=== PATIENT | female | born 1985 | race African-American/Black ===

== ENCOUNTER → 2017-11-24 | Outpatient (CLI) | payer BC ==
[2017-11-24 15:12] VITALS: BP 92/79; PULSE 95; RESP 16; TEMP 97.8
[2017-11-24 15:55] VITALS: BMI 35.1
--- NOTE | 2017-11-24 17:16 | P.HPBAR ---
Bariatric H&P - History & Physicial H&P Date: 11/24/17 History & Physicial: Visit/CC: Initial Visit Patient initial contact: Initial weight: 92.136 kg Initial weight in pounds: 203.00 Height: 5 ft 3.75 in Initial BMI: 35.1 Last weight: Current weight: 92.136 kg Current weight in pounds: 203.00 Current BMI: 35.1 [place] body weight (based on NIH guidelines): 53.864 kg Excess body weight loss: 0.0% The patient is a 32 year-old F who presents for Bariatric Assessment. Patient here today for bariatric evaluation. She has been struggling with her weight for many years. Patient suffers from bilateral knee pain, back pain, and heartburn. Her heaviest weight was probably around 210 she believes. Denies dysphagia. No history of DVT. She has tried a variety of weight loss methods without sustained success. She did have a nutritional weight loss program that she states resulted in increased weight gain. Only significant surgical procedure was a abdominoplasty in the past. Review of Systems The patient denies any acute changes in vision or hearing, no dysphagia or odynophagia, no chest pain or shortness of breath, no dysuria or hematuria, no headache, no runny nose, no rectal bleeding or melena, no unexplained weight loss Past Medical History History of Any Multi-Drug Resistant Organisms: None Reported Additional Past Surgical History / Comment(s): pannilectomy Past Anesthesia/Blood Transfusion Reactions: No Reported Reaction Past Psychological History: No Psychological Hx Reported Smoking Status: Never smoker Past Alcohol Use History: None Reported Past Drug Use History: None Reported Surgical - Exam Vital Signs Temp Pulse Resp BP 97.8 F 95 16 92/79 11/24/17 15:07 11/24/17 15:07 11/24/17 15:07 11/24/17 15:07 Physical exam: General: Well-developed, well-nourished HEENT: Normocephalic, sclerae nonicteric Abdomen: Nontender, nondistended Extremities: No edema Neuro: Alert and oriented Bariatric Assessment & Plan (1) Obesity (BMI 30-39.9) Narrative/Plan: Surgical weight loss was discussed in detail with the patient. She did attend a seminar that I performed in September. She is interested in sleeve gastrectomy. She does require a 6 month supervised weight loss over a period she is 2 months into that program thus far. Alternatively plan upper endoscopy in March. Hopefully we'll be able to schedule sleeve gastrectomy shortly following that. Status: Acute Bariatric Checklist Checklist: Plan: Checklist: EGD: 1. Hiatal hernia: 2. H. Pylori: HgbA1c: Vitamin D: Smoking: Never smoker Primary care physician referral: Psychiatry clearance: Cardiology clearance: Sleep study: Diet journal: VTE risk score: VTE risk level: Rehab needs at discharge:
== END | disposition home or self-care (01) ==
LOC: BARWHC3 14:57 → EDBD 15:00
PROVIDERS: ATTEND Surgery
DX: E66.9 Obesity, unspecified (principal); Z68.30 Body mass index [BMI] 30.0-30.9, adult
CPT/HCPCS: 99201

== ENCOUNTER → 2018-04-06 | Outpatient (CLI) | payer BC ==
[2018-04-06 15:39] VITALS: BP 98/62; PULSE 86; TEMP 99.9; BMI 37.2
--- NOTE | 2018-04-06 16:21 | P.BASOAP ---
Subjective Progress Note Date: 04/06/18 Principal diagnosis: Morbid obesity Patient returns after completing 6 month supervised weight loss. Patient has gained approximately 7 pounds. No other changes to her history and physical. Objective - Vital Signs Vital signs: Vital Signs Temp 99.9 F H 04/06/18 15:36 Pulse 86 04/06/18 15:36 Resp BP 98/62 04/06/18 15:36 Pulse Ox Intake & Output 04/05/18 04/06/18 04/06/18 18:59 06:59 18:59 Weight 95.39 kg - Exam Abdomen: Soft, nontender, nondistended Assessment/Plan (1) Obesity (BMI 30-39.9) Narrative/Plan: Will proceed with upper endoscopy on 04/21. The surgical risks related to sleep gastrectomy were described in detail. The risks of bleeding, infection, stenosis, stricture, leak, abscess, fistula formation, peritonitis, poor weight loss, reflux, vomiting, conversion to an open procedure, aborting sleeve gastrectomy, MO, PE, DVT, and were discussed. The patient understands and wishes to proceed. Plan: Date: 04/06/18 Initial Weight: 92.136 kg Initial BMI: 35.9 Current Weight: 95.39 kg Current BMI: 37.2 Type of Surgery: Total Volume in Band: Previous Volume: Volume Removed: Volume Added: Band Size:
== END | disposition home or self-care (01) ==
LOC: BARWHC3 14:46
PROVIDERS: ATTEND Surgery
DX: E66.01 Morbid (severe) obesity due to excess calories (principal); Z68.37 Body mass index [BMI] 37.0-37.9, adult
CPT/HCPCS: 99211

== ENCOUNTER → 2018-07-13 | Outpatient (CLI) | payer BC ==
--- NOTE | 2018-07-13 20:53 | CONS ---
CONSULTATION Consultation for sleep apnea. 33-year-old female patient coming in for sleep apnea evaluation. She is excessively fatigued and fatigued and sleepy during the day. She works as a customs officer. She sleeps between 11:00 p.m. and 4:30 am in the morning. She wakes up tired and sleepy during the day. On weekends she sleeps between midnight and 7:00 am. She snores and unsure if she quits breathing. Upon arousal she is quite somnolent and sleepy. Marion score is currently at 15. She has gained around 40 pounds over the past 5 years. No family history of obstructive sleep apnea. No grinding of the teeth. No restlessness in lower extremities. No nocturnal heartburn. She is considering bariatric surgery and for that reason, she has seen Dr. Wei Willett. PAST MEDICAL HISTORY: Obesity otherwise negative. SURGICAL HISTORY: Negative other than dental procedure of extraction of wisdom tooth. ALLERGIES: Not known. MEDICATIONS: None. SOCIAL HISTORY: Nonsmoker. No history of alcohol. No history of IV drugs. FAMILY HISTORY: Negative for sleep apnea. REVIEW OF SYSTEMS: 12-point review of system was done. Positive for snoring. Negative for any witnessed apneas. No nocturia, no grinding of the teeth. No sleepwalking or sleep talking. No anxiety or panic attacks. No palpitation, no heartburn, no sweating, no claustrophobia, no depression. PHYSICAL EXAMINATION: BP is 101/83, pulse 88, respirations 18, temperature 98.2, saturation 96% on room air. Marion score of 15. BMI 34.6, neck size 13-1/2 and weight is 199, height is 5 feet 3 inches. GENERAL APPEARANCE: Calm, comfortable. Head is atraumatic, normocephalic. NECK: Supple, short, crowding of posterior pharynx. No goiter or neck masses. LUNGS: Clear to auscultation. HEART: Sounds regular rhythm. Normal S1, S2. No S3, S4. No murmurs. ABDOMEN: Soft, nontender. No organomegaly. EXTREMITIES: No edema. No cyanosis or clubbing. SKIN: Negative for any wounds or ulceration. NEUROLOGIC: A and O x3. No focal neurological deficits. IMPRESSION: 1. Excessive hypersomnia likely on the basis of obstructive sleep apnea. Marion score of 15. Will need further investigation including a polysomnogram. 2. Obesity with a BMI of 34.6. 3. There is loud snoring. PLAN: 1. Weight loss. 2. Proceed with a screening polysomnogram looking for any significant obstructive sleep apnea and treat accordingly. JADA / [place]: [id number] /
== END | disposition home or self-care (01) ==
LOC: SLEEP 13:27
PROVIDERS: ATTEND Internal Medicine Critical Care Medicine
DX: G47.10 Hypersomnia, unspecified (principal); E66.9 Obesity, unspecified; R06.83 Snoring; Z68.34 Body mass index [BMI] 34.0-34.9, adult
CPT/HCPCS: 99211